=== PATIENT | male | born 1975 | race Caucasian/White ===

== ENCOUNTER 2024-12-22 19:11 | Emergency (ER) | payer SELFPAY ==
[2024-12-22 19:14] VITALS: BP 130/82; PULSE 83; RESP 20; TEMP 36.3; O2SAT 97; BMI 34.8
--- NOTE | 2024-12-22 19:37 | ED_ITS ---
HPI - General Adult General Chief complaint: Abdominal Pain Stated complaint: stomach pain blood in stool Time Seen by Provider: 12/22/24 19:36 Source: patient Mode of arrival: Ambulatory History of Present Illness HPI narrative: 49-year-old gentleman with right flank pain starting this morning after voiding. He noted that his urine was relatively concentrated. He also had a firm bowel movement with a streak of red blood while wiping after that. He has never had kidney stones previously currently on no medications. Describes right flank pain that is progressively moving down into the right lower quadrant. Also notes some left-sided generalized abdominal pain. No fevers, no actual dysuria. No chest pain, shortness of breath, headache Related Data Previous Rx's ?Medication ?Instructions ?Recorded ondansetron 4 mg disintegrating 4 mg PO Q8H PRN nausea and 12/22/24 tablet vomiting #14 tabs oxycodone-acetaminophen 5 mg-325 1 tab PO Q6H PRN pain #20 tabs 12/22/24 mg tablet tamsulosin 0.4 mg capsule 0.4 mg PO DAILY #20 caps Allergies Allergy/AdvReac Type Severity Reaction Status Date / Time No Known Drug Allergies Allergy Verified 12/22/24 19:15 Review of Systems Review of Systems Narrative: Pertinent positive and negative findings as per HPI Patient History Social History Smoking Status: Never smoker Smoking Status: Never smoker Exam Initial Vital Signs Initial Vital Signs: Vital Signs Temperature 97.4 F L 12/22/24 19:14 Pulse Rate 83 12/22/24 19:14 Respiratory Rate 20 12/22/24 19:14 Blood Pressure 130/82 12/22/24 19:14 Pulse Oximetry 97 12/22/24 19:14 Oxygen Delivery Method Room Air 12/22/24 19:14 General: Healthy appearing, in no acute distress. Able to give a complete and coherent history. Well-nourished well-developed HEENT: Moist mucous membranes, normal sclera with reactive pupils, Respiratory: Full and symmetrical air movement Cardiac: Regular rate and rhythm no murmurs no bruits Abdomen: Soft, mild diffuse tenderness, right flank pain pain is slightly exacerbated with rate lower quadrant palpation. He does not have rebound or guarding Skin: Warm and dry, no rashes Neurologic: Grossly neurologically intact with no obvious asymmetries or abnormalities Extremities: No trauma, well perfused Psych: Cooperative, appropriate insight and affect Course Orders Ordered: ED Orders 12/22/24 19:23 Consult to [employer] TECHNICIAN - Career Development Coordinator/Teacher Stat 12/22/24 19:26 Ictotest Urine Stat Urine Microscopic Stat 12/22/24 19:33 Complete Blood Count AUTO DIFF Stat Comprehensive Metabolic Panel Stat Lipase Stat 12/22/24 19:38 CT kidney ureter bladder (KUB) Stat Hydromorphone HCl (Hydromorphone 0.5 Mg Inj) 0.5 mg IV Q15MIN PRN PRN Reason: Pain, Last Admin: 12/22/24 22:09 Dose: 0.5 mg Documented By: Admin: 12/22/24 20:35 Dose: 0.5 mg Documented By: SOFI Ondansetron HCl (Ondansetron 4 Mg/2 Ml Inj) 4 mg IV NOW PRN PRN Reason: Nausea And Vomiting Ondansetron HCl (Ondansetron 4 Mg Odt) 4 mg PO NOW PRN PRN Reason: Nausea And Vomiting Discontinued Medications Sodium Chloride (Normal Saline 0.9%) 1,000 mls @ 1,000 mls/hr IV BOLUS ONE Stop: 12/22/24 20:36 Last Infusion: 12/22/24 21:38 Dose: Infused Documented By: Admin: 12/22/24 20:35 Dose: 1,000 mls/hr Documented By: SOFI Ketorolac Tromethamine (Ketorolac 30 Mg/Ml Vial) 15 mg IV NOW ONE Stop: 12/22/24 22:27 Last Admin: 12/22/24 22:43 Dose: 15 mg Ondansetron HCl (Ondansetron 4 Mg/2 Ml Inj) 4 mg IV NOW ONE Stop: 12/22/24 19:38 Last Admin: 12/22/24 20:34 Dose: 4 mg Documented By: SOFI Oxycodone/Acetaminophen (Oxycodone/Acetaminophen 5/325 Tablet) 1 tab PO NOW ONE Stop: 12/22/24 22:27 Last Admin: 12/22/24 22:43 Dose: 1 tab Oxycodone/Acetaminophen (Oxycodone/Acetaminophen 5/325 Tablet) 2 tab PO NOW ONE Stop: 12/22/24 22:27 Oxycodone/Acetaminophen (Oxycodone/Apap 5/325 Prepack) 1 bottle MISC DIRECTED ONE Stop: 12/22/24 22:27 Last Admin: 12/22/24 22:44 Dose: 1 bottle Tamsulosin HCl (Tamsulosin 0.4 Mg Capsule) 0.4 mg PO NOW ONE Stop: 12/22/24 22:28 Last Admin: 12/22/24 22:44 Dose: 0.4 mg Vital Signs Vital signs: Vital Signs - 8 hr 12/22/24 19:14 Temperature 97.4 F L Pulse Rate 83 Respiratory Rate 20 Blood Pressure 130/82 Pulse Oximetry 97 Oxygen Delivery Method Room Air Medical Decision Making Lab Data 12/22/24 19:33 12/22/24 19:33 Labs: Lab Results 12/22/24 Range/Units 19:33 WBC 10.8 (4.5-11.0) X10^3/uL RBC 5.41 (4.5-5.9) X10^6/uL Hgb 15.5 (13.5-17.5) g/dL Hct 46.0 (41-53) % MCV 85.1 (80-100) fL MCH 28.7 (26-34) PG MCHC 33.7 (30-36) % RDW 14.6 (11.6-14.8) % Plt Count 190 (150-400) X10^3/uL Neut % (Auto) 73.7 (50-75) % Lymph % (Auto) 20.5 L (25-40) % Lassen % (Auto) 4.8 (3-14) % Eos % (Auto) 0.4 L (2-4) % Baso % (Auto) 0.6 (0-2) % Neut # (Auto) 7900 H (6109-7326) /uL Lymph # (Auto) 2200 (1108-5459) /uL Lassen # (Auto) 500 (0-900) /uL Eos # (Auto) 0 (0-450) /uL Baso # (Auto) 100 (0-100) /uL Sodium 135 L (137-145) mmol/L Potassium 4.2 (3.4-5.1) mmol/L Chloride 105 (98-107) mmol/L Carbon Dioxide 18 L (22-32) mmol/L BUN 12 (9-20) mg/dL Creatinine 1.24 (0.66-1.25) mg/dL Estimated GFR > 60 (>60) mL/min BUN/Creatinine Ratio 9.7 (6-22) Glucose 137 H (70-99) mg/dL Calcium 9.3 (8.4-10.2) mg/dL Total Bilirubin 1.1 (0.2-1.3) mg/dL AST 61 H (17-59) IU/L ALT 85 H (<50) IU/L Alkaline Phosphatase 82 (38-126) U/L Total Protein 8.5 H (6.3-8.2) g/dL Albumin 4.9 (3.5-5.0) g/dL Globulin 3.6 (1.7-4.1) g/dL Albumin/Globulin Ratio 1.4 (1.0-2.8) Lipase 106 (23-300) U/L Urine Dip Bedside Urine Glucose Negative Bedside Urine Bilirubin + 1 Bedside Urine Ketone - Negative Urine Specific [place] 1.030 Bedside Urine Occult Blood +++ Bedside Urine pH 5.5 Bedside Urine Protein + 30 Bedside Urine Urobilinogen - Negative Bedside Urine Nitrite - Negative Bedside Urine Leukocytes - Negative Esterase Point of care testing: Urine Dip Bedside Urine Glucose Negative Bedside Urine Bilirubin + 1 Bedside Urine Ketone - Negative Urine Specific [place] 1.030 Bedside Urine Occult Blood +++ Bedside Urine pH 5.5 Bedside Urine Protein + 30 Bedside Urine Urobilinogen - Negative Bedside Urine Nitrite - Negative Bedside Urine Leukocytes - Negative Esterase Imaging Data CT scan - abdomen/pelvis: Radiologist's Impression: ROCEDURE: CT KIDNEY URETER BLADDER (KUB) INDICATIONS: right flank pain TECHNIQUE: Axial sections were acquired from the lung bases to the pubic symphysis. Coronal and sagittal reformats were performed. For radiation dose reduction, the following was used: automated exposure control, adjustment of mA and/or kV according to patient size. COMPARISON: None. FINDINGS: Image quality: Diagnostic. Lower Chest: Bibasilar atelectasis. URINARY: Right Kidney/ureter: Mild right hydroureteronephrosis with associated mild perinephric and periureteral stranding secondary to a 3 mm distal right ureteral stone. Small incompletely characterized right renal hypodensity likely representing a cyst. Left Kidney: No stones or hydronephrosis. Left Ureter: No hydroureter. Bladder: Normal wall thickness. No stones. ABDOMEN: Liver: No contour-deforming solid mass. Gallbladder: No radiopaque gallstones or wall thickening. Biliary ducts: No biliary dilation. Pancreas: No ductal dilation. Spleen: Size is within normal limits. Adrenal Glands: No adrenal nodules. Stomach and Bowel: Normal colonic caliber, without significant wall thickening. No evidence for small bowel obstruction or associated inflammatory changes. Normal appendix Peritoneum: No abnormal intraperitoneal fluid. No free air. Ventral Wall: There is a fat-containing umbilical hernia without acute inflammation. Abdominal Nodes: No enlarged retroperitoneal or mesenteric lymph nodes. Vessels: Aorta and inferior vena cava are normal in size. Atherosclerosis. PELVIS: Pelvic Organs: Unremarkable. Pelvic Nodes: Unremarkable. Miscellaneous: No inguinal hernias are seen. Bones: Unremarkable. Visualized osseous structures appear intact without acute fracture or focal destructive lesion. No acute compression fractures of the imaged spine. IMPRESSION: Mild right hydroureteronephrosis secondary to a 3 mm distal right ureteral stone. There is mild perinephric and periureteral stranding. Recommend clinical and laboratory correlation to exclude possible concurrent infectious uropathy. Other chronic/non-acute findings as above. Dictated by: Raleigh Mansfield M.D. on 12/22/2024 at 20:12 MDM Narrative Medical decision making narrative: CC: Acute right flank pain Complicating co-morbidities: No prescription medications, no chronic medical diagnoses Data collected from: patient Differential considered: Kidney stone, pyelonephritis, diverticulitis, appendicitis, bowel obstruction Exam documented above, pertinent findings include: Describes pain somewhere between the right flank and right lower quadrant that is not exacerbated with palpation. Remainder of exam is benign Lab Test results independently reviewed as above. Pertinent findings: CBC is unremarkable Chemistries are notable for mildly elevated AST and ALT at 61 and 85 respectively. Renal function is appropriate Lipase is unremarkable Treatments: 1 L of Zofran, half a mg of Dilaudid. Re-evaluations: Discussion: 49-year-old gentleman does not have a primary care physician, acute right flank pain migrating into the right lower quadrant with CT scan demonstrating a 3 mm stone in the distal right ureter with mild hydronephrosis. There is no evidence of appendicitis, bowel obstruction, diverticulitis. Pain has improved with fluids, Toradol, Zofran and Dilaudid. He has been transitioned to Percocet given Flomax and pain remains controlled. I am going to discharge him home with prescriptions for Flomax, Percocet for pain control discussion of ibuprofen and Tylenol. Recommend that he follow up with Urology if he continues to have pain but will strongly recommend that he see if he can establish care with a primary care doctor. Discharge Plan Departure Patient Disposition: Home Clinical Impression: Ureterolithiasis Instructions: DI for Kidney Stones Activity Restrictions/Additional Instructions: Thank you for coming in today Your CT scan shows a 3 mm kidney stone almost into the bladder. There was no sign of other complication such as infection, obstruction, masses or tumors. The CT scan does not show additional stones up in your kidneys at this time Using 400 mg of ibuprofen (2 [id number] pills) and 1 Tylenol every 6 hours can be very helpful in controlling pain. For severe pain you can use 400 mg of ibuprofen and 1 Percocet. I have given you a prescription for tamsulosin, this can help slightly dilate the ureter so the stone is more likely to pass. Once your pain has resolved or you have seen the stone pass you do not need to continue the tamsulosin Prescriptions were electronically transmitted to [facility] in [place] You do need to begin making some phone calls to find a primary care physician and establish care. You are encouraged to follow up with our urologist, [facility] the phone number is [phone] If you find the ear pain is again completely uncontrollable, you developing fevers or chills, you have new findings you do need to return to the emergency department Prescriptions: New oxycodone-acetaminophen 5-325 mg tablet 1 tab PO Q6H PRN (Reason: pain) Qty: 20 0RF tamsulosin 0.4 mg capsule 0.4 mg PO DAILY Qty: 20 0RF ondansetron 4 mg tablet,disintegrating 4 mg PO Q8H PRN (Reason: nausea and vomiting) Qty: 14 0RF Stand Alone Forms: Patient Portal/API
[2024-12-22 19:42] LABS: Add Manual Diff / Slide Review NO; Basophils Absolute Auto 100 /uL (0-100); Basophils Percent Auto 0.6 % (0-2); Eosinophils Absolute Auto 0 /uL (0-450); Eosinophils Percent Auto 0.4 % (2-4); Hemoglobin 15.5 g/dL (13.5-17.5); Lymphocytes Absolute Auto 2200 /uL (1100-4500); Lymphocytes Percent Auto 20.5 % (25-40); Mean Corpuscular HGB Conc 33.7 % (30-36); Mean Corpuscular Hemoglobin 28.7 PG (26-34); Mean Corpuscular Volume 85.1 fL (80-100); Monocytes Absolute Auto 500 /uL (0-900); Monocytes Percent Auto 4.8 % (3-14); Neutrophils Absolute Auto 7900 /uL (1500-7000); Neutrophils Percent Auto 73.7 % (50-75); Platelet Count 190 X10^3/uL (150-400); Red Blood Cell Count 5.41 X10^6/uL (4.5-5.9); Red Cell Distribution Width 14.6 % (11.6-14.8); White Blood Cell Count 10.8 X10^3/uL (4.5-11.0)
[2024-12-22 19:53] LABS: Alanine Aminotransferase 85 IU/L (<50); Albumin 4.9 g/dL (3.5-5.0); Albumin Globulin Ratio 1.4 (1.0-2.8); Alkaline Phosphatase 82 U/L (38-126); Aspartate Aminotransferase 61 IU/L (17-59); BUN Creatinine Ratio 9.7 (6-22); Bilirubin Total 1.1 mg/dL (0.2-1.3); Blood Urea Nitrogen 12 mg/dL (9-20); Calcium 9.3 mg/dL (8.4-10.2); Carbon Dioxide 18 mmol/L (22-32); Chloride 105 mmol/L (98-107); Estimated Glomerular Filt Rate > 60 mL/min (>60); Globulin 3.6 g/dL (1.7-4.1); Glucose 137 mg/dL (70-99); HEMOLYSIS 21 (0-50); Lipase 106 U/L (23-300); Potassium 4.2 mmol/L (3.4-5.1); Sodium 135 mmol/L (137-145); Total Protein 8.5 g/dL (6.3-8.2)
[2024-12-22] MEDS: ONDANSETRON 4 MG/2 ML INJ IV (20:34)
[2024-12-22] MEDS: SODIUM CHLORIDE 0.9% 1,000 ML 1000 ML IV (20:35)
[2024-12-22] MEDS: HYDROMORPHONE 0.5 MG INJ IV ×2 (20:35→22:09)
--- NOTE | 2024-12-22 22:14 | PC.NURSE ---
Patient reports 10/10 flank pain, administered 0.5 mg dilaudid per provider order.
[2024-12-22] MEDS: OXYCODONE/ACETAMINOPHEN 5/325 TABLET 1 TAB PO (22:43)
[2024-12-22] MEDS: KETOROLAC 30 MG/ML VIAL 15 MG IV (22:43)
[2024-12-22] MEDS: OXYCODONE/APAP 5/325 PREPACK 1 BOTTLE MISC (22:44)
[2024-12-22] MEDS: TAMSULOSIN 0.4 MG CAPSULE PO (22:44)
[2024-12-22 23:12] VITALS: BP 132/79; PULSE 59; RESP 14; O2SAT 97
[2024-12-22 23:18] LABS: Bacteria Urine None Seen; Culture Indicated Urine Cult Not Indicated; Ictotest Urine Negative (Negative); RBC Urine 1-5/HPF (0-5/HPF); Squamous Epithelial Cell Urine 0-1 /HPF (0-5/HPF); Urine Volume 10mL (spun); WBC Urine None Seen (0-5/HPF)
== END 2024-12-22 23:14 | disposition home or self-care (01) ==
PROVIDERS: Emergency Provider Emergency Medicine
DX: N20.1 Calculus of ureter (principal)
CPT/HCPCS: 36415; 74176; 80053; 81003; 81015; 83690; 85025; 96361; 96374; 96375; 96376; 99284; J1171; J1885; J2405